=== PATIENT | male | born 1965 | race Caucasian/White ===

== ENCOUNTER 2023-01-11 14:37 | Inpatient (IN) ==
[2023-01-11] MEDS ORDERED: Ondansetron 4 mg VIAL 2 MG/ML 2 ml VIAL IV PRN (14:56)
[2023-01-11] MEDS ORDERED: Ondansetron ODT 4 mg TAB 4 MG TAB PO PRN (14:56)
[2023-01-11] MEDS ORDERED: Magnesium Hydroxide LIQ 30 ML UDC PO PRN (14:56)
[2023-01-11] MEDS ORDERED: Lactulose 30 ml UDC PO PRN (14:56)
[2023-01-11] MEDS ORDERED: Vancomycin per Pharmacy 1 EA NOTE FOLLOW UP SCH ×2 (16:00→18:00)
[2023-01-11 16:14] LABS: ABS Eosinophils 0.1 10^3/uL (0.0-0.5); ABS Lymphocytes 1.2 10^3/uL (1.0-4.8); ABS Monocytes 0.4 10^3/uL (0.0-1.1); ABS Neutrophils 5.4 10^3/uL (1.5-7.6); Eosinophil % 1.7 %; Hematocrit 41.8 % (38-53); Hemoglobin 14.9 g/dL (13.2-16.3); Lymphocyte % 17.3 %; Mean Corpuscular Hemoglobin 33.3 pg (27-33); Mean Corpuscular Hgb Conc 35.6 g/dL (31-36); Mean Corpuscular Volume 93.6 fL (80-97); Mean Platelet Volume 7.6 fL (7.5-11.2); Nucleated Red Blood Cells % 0.1 /100 WBC (0.0-0.4); Platelet Count 379 10^3/uL (150-450); Red Blood Count 4.46 10^6/uL (4.06-5.63); Red Cell Distribution Width 12.7 % (12-17); White Blood Count 7.1 10^3/uL (3.6-10.2)
[2023-01-11 16:44] LABS: Albumin 4.7 g/dL (3.2-5.2); Albumin/Globulin Ratio 1.4 (1-3); C Reactive Protein 7.15 mg/L (<8.01); Calcium 9.9 mg/dL (8.6-10.3); Creatinine, Serum 0.94 mg/dL (0.67-1.17); Globulin 3.4 g/dL (2-4); Potassium 4.1 mmol/L (3.5-5.0); Total Bilirubin 0.5 mg/dL (0.2-1.0); Total Protein 8.1 g/dL (6.4-8.9); eGFR CKD-EPI 95.1 (>60)
[2023-01-11] MEDS ORDERED: Lactated Ringers 1000 ml BAG 1,000 ML IV ONE (18:03)
[2023-01-11 18:31] LABS: Erythrocyte Sed Rate 29 mm/Hr (0-19)
[2023-01-11] MEDS ORDERED: Albuterol HFA INHALER 8 gm MDI INH PRN (18:51)
[2023-01-11] MEDS: cefTRIAXone 2 gm/50 mL D5W 2 GM/50 ML BAG IV SCH (18:55)
[2023-01-11] MEDS ORDERED: Vancomycin 1,500 MG in NS 0.9% 250 ml 250 ML IVPB SCH (19:00)
[2023-01-11] MEDS ORDERED: Dextrose 50% Syringe 50 ml 25 GM/50 ML SYRINGE IV PUSH PRN (19:07)
[2023-01-11] MEDS: Enoxaparin 30 MG/0.3 ML SYR SUBCUT SCH (19:42)
[2023-01-11] MEDS ORDERED: Vancomycin 1,750 MG in NS 0.9% 500 ml BAG 500 ML IVPB ONE (20:00)
[2023-01-11] MEDS ORDERED: Gadoteridol (CONTRAST) 279.3 MG/ML 10 ML IV ONE (21:05)
[2023-01-11] MEDS: Magnesium Hydroxide LIQ 30 ML UDC PO SCH (22:01)
[2023-01-11] MEDS: Insulin GLARGINE 100 un/ml 10 ml VIAL SUBCUT SCH (22:02)
[2023-01-12 08:58] LABS: ABS Basophils 0.1 10^3/uL (0.0-0.1); ABS Eosinophils 0.1 10^3/uL (0.0-0.5); ABS Lymphocytes 1.4 10^3/uL (1.0-4.8); ABS Monocytes 0.6 10^3/uL (0.0-1.1); ABS Neutrophils 4.4 10^3/uL (1.5-7.6); ABS Nucleated RBC 0.01 10^3/ul; Eosinophil % 2.2 %; Hemoglobin 13.1 g/dL (13.2-16.3); Mean Corpuscular Hemoglobin 32.6 pg (27-33); Mean Corpuscular Hgb Conc 35.5 g/dL (31-36); Mean Corpuscular Volume 91.8 fL (80-97); Mean Platelet Volume 7.6 fL (7.5-11.2); Nucleated Red Blood Cells % 0.1 /100 WBC (0.0-0.4); Platelet Count 312 10^3/uL (150-450); Red Blood Count 4.02 10^6/uL (4.06-5.63); Red Cell Distribution Width 12.6 % (12-17); White Blood Count 6.8 10^3/uL (3.6-10.2)
[2023-01-12 08:59] LABS: C Reactive Protein 6.55 mg/L (<8.01); Calcium 9.2 mg/dL (8.6-10.3); Creatinine, Serum 0.89 mg/dL (0.67-1.17); eGFR CKD-EPI 100.6 (>60)
[2023-01-12] MEDS: Vancomycin 1,500 MG in NS 0.9% 250 ml 250 ML IVPB SCH ×2 (08:59→21:14)
[2023-01-12 09:30] LABS: Urine Appearance Clear; Urine Bilirubin Negative (Negative); Urine Blood Negative (Negative); Urine Color Yellow; Urine Glucose 3+(>=500 mg/dL) (Negative); Urine Ketones Trace (Negative); Urine Nitrite Negative (Negative); Urine Protein Negative (Negative); Urine Specific Gravity 1.038 (1.002-1.030); Urine Urobilinogen Negative (Negative)
[2023-01-12] MEDS: Enoxaparin 30 MG/0.3 ML SYR SUBCUT SCH (11:21)
[2023-01-12] MEDS: Vitamin THERAPEUTIC TAB PO SCH (11:24)
[2023-01-12] MEDS: Magnesium Hydroxide LIQ 30 ML UDC PO SCH ×2 (11:24→21:14)
[2023-01-12] MEDS ORDERED: Bupivacaine 0.25% SDV 30 ML ONE (15:51)
[2023-01-12] MEDS ORDERED: Propofol 10 MG/ML 20 ML BTL ONE (16:02)
[2023-01-12] MEDS ORDERED: Lidocaine 2% PF 5 ML VIAL ONE (16:02)
[2023-01-12] MEDS ORDERED: fentaNYL 100 mcg/2 ml 50 MCG/ML VIAL ONE (16:03)
[2023-01-12] MEDS ORDERED: Midazolam 2 mg/2 ml VIAL 1 mg/ml 2 ml VIAL (2 mg) ONE (16:05)
[2023-01-12] MEDS ORDERED: Ondansetron 4 mg VIAL 2 MG/ML 2 ml VIAL ONE (16:45)
[2023-01-12] MEDS: cefTRIAXone 2 gm/50 mL D5W 2 GM/50 ML BAG IV SCH (17:40)
[2023-01-12] MEDS: Morphine 2 MG/ML SYRINGE IV PRN (21:17)
[2023-01-12] MEDS: Insulin GLARGINE 100 un/ml 10 ml VIAL SUBCUT SCH (22:19)
[2023-01-13] MEDS: Morphine 2 MG/ML SYRINGE IV PRN (01:25)
[2023-01-13 07:17] LABS: Creatinine, Serum 0.78 mg/dL (0.67-1.17); eGFR CKD-EPI 104.7 (>60)
[2023-01-13] MEDS ORDERED: Vancomycin Trough Check NOTE FOLLOW UP ONE (07:30)
[2023-01-13] MEDS: Vitamin THERAPEUTIC TAB PO SCH (08:57)
[2023-01-13] MEDS: Enoxaparin 30 MG/0.3 ML SYR SUBCUT SCH (08:59)
[2023-01-13] MEDS ORDERED: Tetan/Diph/Pertus SYR(Tdap) 0.5 ML SYR(BOOSTRIX) use SYR contains LATEX IM ONE (09:00)
[2023-01-13] MEDS: Magnesium Hydroxide LIQ 30 ML UDC PO SCH ×2 (09:06→22:45)
[2023-01-13 09:41] LABS: Vancomycin Trough 12.1 mcg/mL
[2023-01-13] MEDS: Vancomycin 1,500 MG in NS 0.9% 250 ml 250 ML IVPB SCH (09:47)
[2023-01-13] MEDS: Vancomycin 1,250 MG in NS 0.9% 250 ml 250 ML IVPB SCH (16:57)
[2023-01-13] MEDS: cefTRIAXone 2 gm/50 mL D5W 2 GM/50 ML BAG IV SCH (18:39)
[2023-01-13] MEDS ORDERED: Insulin GLARGINE 100 un/ml 10 ml VIAL SUBCUT SCH (21:00)
[2023-01-14] MEDS: Vancomycin 1,250 MG in NS 0.9% 250 ml 250 ML IVPB SCH ×3 (00:05→16:18)
[2023-01-14] MEDS: Enoxaparin 30 MG/0.3 ML SYR SUBCUT SCH (08:21)
[2023-01-14] MEDS: Vitamin THERAPEUTIC TAB PO SCH (08:23)
[2023-01-14] MEDS: Magnesium Hydroxide LIQ 30 ML UDC PO SCH ×2 (08:24→21:24)
[2023-01-14] MEDS ORDERED: Vancomycin Trough Check NOTE FOLLOW UP ONE (15:30)
[2023-01-14] MEDS: cefTRIAXone 2 gm/50 mL D5W 2 GM/50 ML BAG IV SCH (17:31)
[2023-01-14] MEDS: Insulin GLARGINE 100 un/ml 10 ml VIAL SUBCUT SCH (21:25)
[2023-01-15] MEDS: Vancomycin 1,250 MG in NS 0.9% 250 ml 250 ML IVPB SCH ×4 (00:22→23:58)
[2023-01-15 06:09] LABS: ABS Basophils 0.1 10^3/uL (0.0-0.1); ABS Eosinophils 0.2 10^3/uL (0.0-0.5); ABS Lymphocytes 1.3 10^3/uL (1.0-4.8); ABS Monocytes 0.4 10^3/uL (0.0-1.1); ABS Neutrophils 2.5 10^3/uL (1.5-7.6); Eosinophil % 4.9 %; Hematocrit 34.2 % (38-53); Hemoglobin 12.3 g/dL (13.2-16.3); Lymphocyte % 28.8 %; Mean Corpuscular Hemoglobin 33.3 pg (27-33); Mean Corpuscular Volume 92.4 fL (80-97); Mean Platelet Volume 7.6 fL (7.5-11.2); Platelet Count 240 10^3/uL (150-450); White Blood Count 4.6 10^3/uL (3.6-10.2)
[2023-01-15] MEDS: Vitamin THERAPEUTIC TAB PO SCH (08:29)
[2023-01-15] MEDS: Magnesium Hydroxide LIQ 30 ML UDC PO SCH ×2 (08:30→20:44)
[2023-01-15] MEDS: Enoxaparin 30 MG/0.3 ML SYR SUBCUT SCH (08:30)
[2023-01-15] MEDS: cefTRIAXone 2 gm/50 mL D5W 2 GM/50 ML BAG IV SCH (17:49)
[2023-01-15] MEDS: Insulin GLARGINE 100 un/ml 10 ml VIAL SUBCUT SCH (21:16)
[2023-01-16] MEDS: Vancomycin 1,250 MG in NS 0.9% 250 ml 250 ML IVPB SCH ×3 (09:40→23:52)
[2023-01-16] MEDS: Vitamin THERAPEUTIC TAB PO SCH (09:40)
[2023-01-16] MEDS: Enoxaparin 30 MG/0.3 ML SYR SUBCUT SCH (09:41)
[2023-01-16] MEDS: cefTRIAXone 2 gm/50 mL D5W 2 GM/50 ML BAG IV SCH (18:13)
[2023-01-16] MEDS: Insulin GLARGINE 100 un/ml 10 ml VIAL SUBCUT SCH (20:13)
[2023-01-17 07:13] LABS: ABS Basophils 0.1 10^3/uL (0.0-0.1); ABS Eosinophils 0.2 10^3/uL (0.0-0.5); ABS Lymphocytes 1.2 10^3/uL (1.0-4.8); ABS Monocytes 0.4 10^3/uL (0.0-1.1); ABS Neutrophils 2.3 10^3/uL (1.5-7.6); Eosinophil % 5.1 %; Hematocrit 36.9 % (38-53); Mean Corpuscular Hemoglobin 32.8 pg (27-33); Mean Corpuscular Hgb Conc 35.3 g/dL (31-36); Mean Corpuscular Volume 92.9 fL (80-97); Mean Platelet Volume 6.9 fL (7.5-11.2); Platelet Count 228 10^3/uL (150-450); Red Blood Count 3.97 10^6/uL (4.06-5.63); Red Cell Distribution Width 13.1 % (12-17); White Blood Count 4.2 10^3/uL (3.6-10.2)
[2023-01-17 07:30] LABS: C Reactive Protein 5.85 mg/L (<8.01); Calcium 8.8 mg/dL (8.6-10.3); Creatinine, Serum 0.9 mg/dL (0.67-1.17); eGFR CKD-EPI 100.2 (>60)
[2023-01-17] MEDS ORDERED: Vancomycin Trough Check NOTE FOLLOW UP ONE (07:30)
[2023-01-17] MEDS: Vancomycin 1,250 MG in NS 0.9% 250 ml 250 ML IVPB SCH (08:06)
[2023-01-17] MEDS: Vitamin THERAPEUTIC TAB PO SCH (10:48)
[2023-01-17] MEDS: Enoxaparin 30 MG/0.3 ML SYR SUBCUT SCH (10:51)
[2023-01-17] MEDS: cefTRIAXone 2 gm/50 mL D5W 2 GM/50 ML BAG IV SCH (17:47)
[2023-01-17] MEDS: Insulin GLARGINE 100 un/ml 10 ml VIAL SUBCUT SCH (20:33)
[2023-01-18] MEDS: Vitamin THERAPEUTIC TAB PO SCH (09:09)
[2023-01-18] MEDS: Enoxaparin 30 MG/0.3 ML SYR SUBCUT SCH (09:10)
[2023-01-18] MEDS: cefTRIAXone 2 gm/50 mL D5W 2 GM/50 ML BAG IV SCH (09:21)
[2023-01-18 10:32] VITALS: BP 104/66
== END 2023-01-18 13:05 | disposition home or self-care (01) | DRG 952 ==
LOC: ED 14:37 → EDHOLD 14:37 → MED 01-12 07:28
PROVIDERS: ADMIT Orthopaedic Surgery Sports Medicine; ATTEND Orthopaedic Surgery Sports Medicine